=== PATIENT | female | born 1940 | race Caucasian/White ===

== ENCOUNTER 2020-10-18 20:13 | Emergency (ER) | payer MEDICARE, OTHER ==
--- NOTE | 2020-10-18 21:06 | ED Physician Documentation ---
PD HPI WOUND RECHECK - Stated complaint Stated Complaint: POST OP SEAM RIP - Chief complaint Chief Complaint: General - Histroy obtained from History obtained from: Patient - History of Present Illness Location: Abdomen Timing - onset: Today (she had surgical repair of incarcerated hiatal hernia done other hospital, and has ruben midline in place. Healing okay per patient. Had large amount of dark bloody fluid come out between ruben lower aspect this morning. Called surgery office and told to get check.) Associated symptoms: Drainage (just today). No: Redness, Swelling Recently seen: Surgery Review of Systems Constitutional: denies: Fever, Chills Nose: denies: Rhinorrhea / runny nose, Congestion Throat: denies: Sore throat Respiratory: denies: Cough GI: denies: Abdominal Pain, Nausea (has been eating well post op, soft foods as directed.), Vomiting, Diarrhea PD PAST MEDICAL HISTORY - Past Medical History Cardiovascular: None Respiratory: None Neuro: None Endocrine/Autoimmune: None - Allergies Allergies/Adverse Reactions: Allergies Allergy/AdvReac Type Severity Reaction Status Date / Time No Known Drug Allergies Allergy Verified 10/18/20 20:30 PD ED PE NORMAL - Vitals Vital signs reviewed: Yes - General General: Alert and oriented X 3, No acute distress, Well developed/nourished - Abdomen Abdomen: Soft, Non tender, Other (surgical ruben in place midline incision. The lower aspect of it has point between 2 ruben where I can express few drops of serosanginous fluid. No palpable fluid still. Bedside U/S did not show residual fluid collection. ) - Derm Derm: Normal color, Warm and dry - Neuro Neuro: Alert and oriented X 3, No motor deficit, Normal speech Results - Vitals Vitals: Oxygen O2 Source Room air PD MEDICAL DECISION MAKING - ED course Complexity details: considered differential (I can express just few drops of serosangiunous fluid c/w hematoma from lower incision. Bedside U/S shjowed no noted fluid collection, so I believe the hematoma has mainly evacuated itself. ), d/w patient Departure - Departure Disposition: 01 Home, Self Care Condition: Stable Record reviewed to determine appropriate education?: Yes Comments: This is a appears to be just drainage from a postoperative hematoma/seroma. It does not look infected. There may be still some draining at times a few drops or so at a time. I do not see any large fluid collection still remaining under the skin by bedside ultrasound. Recheck if signs of infection develop otherwise follow-up with your surgeon as intended. Discharge Date/Time: 10/18/20 21:44
[2020-10-18 21:44] VITALS: BP 141/64
== END 2020-10-18 21:44 | disposition home or self-care (01) ==
LOC: ED 20:13
DX: L76.34 Postprocedural seroma of skin and subcutaneous tissue following other procedure (principal)
CPT/HCPCS: 99282; 99283